=== PATIENT | female | born 1990 | race Caucasian/White ===

== ENCOUNTER 2020-10-16 09:06 | Emergency (ER) | payer OTHER ==
[~2020-10-16] VITALS: Ht 152.4 cm; Wt 117.7 kg
[~2020-10-16 09:06] MED LIST: ABILIFY10 MG PO; ELIQUIS5 MG PO; GLUCOPHAGE500 MG PO; GLUCOTROL XL 1010 MG PO; KEFLEX500 MG PO; LIPITOR10 MG PO; MACROBID100 MG PO; PAXIL40 MG PO; TRULICITY1.5 MG/0.5 SC; ZOFRAN ODT4 MG/UDTAB PO
[2020-10-16 09:20] VITALS: Ht 152.4 cm; Wt 117.7 kg
[2020-10-16 11:11] LABS: BILIRUBIN NEGATIVE (NEGATIVE); KETONE SMALL mg/dL (NEGATIVE); NITRITE NEGATIVE (NEGATIVE); UROBILINOGEN NORMAL mg/dL (< 2)
[2020-10-16 11:12] LABS: HCG URINE NEGATIVE (NEGATIVE)
[2020-10-16] MEDS ORDERED: ZANAFLEX4 MG PO (12:35)
[2020-10-16 12:52] VITALS: BP 112/68
== END 2020-10-16 12:53 | disposition home or self-care (01) ==
LOC: D.ER 09:06
PROVIDERS: Emergency Medicine
DX: S39.012A Strain of muscle, fascia and tendon of lower back, initial encounter (principal); S29.012A Strain of muscle and tendon of back wall of thorax, initial encounter; X50.0XXA Overexertion from strenuous movement or load, initial encounter; Y93.9 Activity, unspecified; Y92.9 Unspecified place or not applicable